=== PATIENT | female | born 1980 | race African-American/Black ===

== ENCOUNTER 2018-12-05 12:01 | Observation (INO) ==
[2018-12-05] MEDS ORDERED: SODIUM POLYSTYRENE SULFATE 15 GM/60 ML BOTTLE PO STA (17:08)
[2018-12-05] MEDS ORDERED: ZALEPLON 5 MG CAPSULE PO PRN (17:13)
[2018-12-05] MEDS ORDERED: diphenhydrAMINE CAP 25 MG CAPSULE PO PRN (17:13)
[2018-12-05] MEDS ORDERED: MORPHINE 4 MG/1 ML VIAL IV PRN (17:13)
[2018-12-05] MEDS ORDERED: ACETAMINOPHEN 325 MG TABLET PO PRN (17:13)
[2018-12-05] MEDS ORDERED: ONDANSETRON 4 MG/2 ML VIAL IV PRN (17:13)
[2018-12-05 17:26] LABS: Risk Ratio 3.74; VLDL CHOLESTEROL 18.8 MG/DL
[2018-12-05] MEDS: PANTOPRAZOLE 40 MG VIAL IV SCH (20:51)
[2018-12-06 05:17] LABS: Basophils % 0.5 % (0.0-0.8); Eosinophils # 0.4 10*3/uL (0.0-0.87); Eosinophils % 5.6 % (0.00-10.9); Hematocrit 25.6 VOL% (35.7-47.0); Hemoglobin 7.2 GM/DL (12.0-16.0); Immature Granulocytes % 0.2 %; Immature Granulocytes Absolute 0.01 #; Lymphocytes # 1.5 10*3/uL (1.4-4.0); Lymphocytes % 22.6 % (21.3-54.2); Mean Corpuscular HGB Conc 28.1 GM/DL (32-36); Mean Corpuscular Volume 82.6 FL (87-102); Mean Platelet Volume 11.2 FL (9.6-12.0); Monocytes % 4.1 % (1.7-12.7); Platelet Count 242 T/CUMM (130-400); Red Cell Distribution Width 17.1 % (9.3-17.3); White Blood Count 6.6 T/CUMM (4-12)
[2018-12-06 05:47] LABS: Anisocytosis 1+; Hypochromasia 1+; Platelet Estimate Adequate
[2018-12-06 05:56] LABS: Albumin 3.1 G/DL (3.4-5.0); Bilirubin,Total 0.6 MG/DL (0.2-1.0); Calcium 6.3 MG/DL (8.5-10.1); Total Protein 7.8 G/DL (6.4-8.3)
[2018-12-06 05:59] LABS: % Iron Saturation 7.4 % (18-50); Ferritin 13.8 ng/ml (8-252)
[2018-12-06] MEDS ORDERED: CALCIUM ACETATE 667 MG CAPSULE PO SCH (09:00)
[2018-12-06] MEDS ORDERED: PATIROMER CALCIUM SORBITEX 8.4 GM PO SCH (09:00)
[2018-12-06] MEDS ORDERED: amLODIPine 5 MG TABLET PO SCH (09:00)
[2018-12-06] MEDS ORDERED: SODIUM POLYSTYRENE SULFATE 15 GM/60 ML BOTTLE PO SCH (09:00)
[2018-12-06] MEDS: PANTOPRAZOLE 40 MG VIAL IV SCH (10:18)
[2018-12-06 11:58] VITALS: BP 124/84
[2018-12-06] MEDS ORDERED: PANTOPRAZOLE 40 MG TABLET PO SCH (21:00)
[2018-12-07 12:46] LABS: Folate 8.1 NG/ML (5.4-24.0)
== END 2018-12-06 14:43 | disposition home or self-care (01) ==
LOC: N.5E 15:02 → INTOOBSV 15:02 → SUATTDRO 15:02
PROVIDERS: ADMIT Internal Medicine; ATTEND Hospitalist

== ENCOUNTER 2019-10-16 09:25 | Inpatient (IN) ==
[2019-10-16 10:04] LABS: Basophils % 0.6 % (0.0-0.8); Eosinophils # 0.3 10*3/uL (0.0-0.87); Hematocrit 34.1 VOL% (35.7-47.0); Hemoglobin 10.4 GM/DL (12.0-16.0); Immature Granulocytes % 2.3 %; Immature Granulocytes Absolute 0.12 #; Lymphocytes # 0.9 10*3/uL (1.4-4.0); Lymphocytes % 16.8 % (21.3-54.2); Mean Corpuscular HGB Conc 30.5 GM/DL (32-36); Mean Corpuscular Volume 95.5 FL (87-102); Mean Platelet Volume 11.7 FL (9.6-12.0); Monocytes % 5.8 % (1.7-12.7); Neutrophils % 69.5 % (38.7-73.9); Platelet Count 317 T/CUMM (130-400); Red Blood Count 3.57 MC/CUMM (3.8-5.5); Red Cell Distribution Width 16.1 % (9.3-17.3); White Blood Count 5.2 T/CUMM (4-12)
[2019-10-16 10:22] LABS: Albumin 2.7 G/DL (3.4-5.0); Bilirubin,Total 0.4 MG/DL (0.2-1.0); Calcium 7.2 MG/DL (8.5-10.1); Osmolality,Calculated 307.4 MOS/KG (273-304); Total Protein 8.7 G/DL (6.4-8.3)
[2019-10-16 10:23] LABS: Eosinophils 8 % (0-10); Lymphocytes 16 % (20-55); Platelet Estimate Adequate; Segmented Neutrophils 73 % (50-85); Total Cells Counted 100
[2019-10-16 10:24] LABS: Hypochromasia 1+
[2019-10-16] MEDS ORDERED: ONDANSETRON 4 MG/2 ML VIAL IV PRN (14:27)
[2019-10-16] MEDS ORDERED: GLUCAGON 1 MG VIAL IM PRN (14:27)
[2019-10-16] MEDS ORDERED: DEXTROSE 50% 25 GM/50 ML VIAL IV PRN (14:27)
[2019-10-16 16:02] LABS: ABG Base Excess -5.2 MMOL/L (-2.5-2.5); ABG HCO3 20.1 MMOL/L (20-26); ABG Oxygen Saturation 94.7 % (95-100); ABG PCO2 32.1 MM HG (35-48); ABG PH 7.383 (7.35-7.45); ABG PO2 83.4 MM HG (80-95); ABG TCO2 17.6 MMOL/L (23-27)
[2019-10-17 06:26] LABS: Basophils % 0.4 % (0.0-0.8); Eosinophils # 0.3 10*3/uL (0.0-0.87); Eosinophils % 5.9 % (0.00-10.9); Hemoglobin 9.5 GM/DL (12.0-16.0); Immature Granulocytes Absolute 0.21 #; Lymphocytes # 0.9 10*3/uL (1.4-4.0); Mean Corpuscular HGB Conc 29.7 GM/DL (32-36); Mean Corpuscular Volume 97.3 FL (87-102); Mean Platelet Volume 11.3 FL (9.6-12.0); Monocytes % 6.8 % (1.7-12.7); NRBC # 0.02 10*3/uL; Neutrophils % 65.9 % (38.7-73.9); Platelet Count 332 T/CUMM (130-400); Red Blood Count 3.29 MC/CUMM (3.8-5.5); Red Cell Distribution Width 15.9 % (9.3-17.3); White Blood Count 5.3 T/CUMM (4-12)
[2019-10-17 06:44] LABS: Albumin 2.5 G/DL (3.4-5.0); Calcium 7.8 MG/DL (8.5-10.1); Osmolality,Calculated 293.2 MOS/KG (273-304); Total Protein 8.9 G/DL (6.4-8.3)
[2019-10-17 06:54] LABS: Band Neutrophils 1 % (0-10); Eosinophils 4 % (0-10); Hypochromasia 1+; Lymphocytes 15 % (20-55); Platelet Estimate Adequate; Segmented Neutrophils 73 % (50-85); Total Cells Counted 100
[2019-10-17] MEDS ORDERED: cefTRIAXone 1,000 MG in SODIUM CHLORIDE 0.9% 100 ML IV SCH (08:30)
[2019-10-17] MEDS ORDERED: guaiFENesin/DM ER 600-30 MG TABLET PO PRN (10:36)
[2019-10-17] MEDS: AZITHROMYCIN 250 MG TABLET PO SCH (15:56)
[2019-10-17] MEDS: HYDROXYCHLOROQUINE 200 MG TABLET PO SCH (15:56)
[2019-10-18 05:45] LABS: Basophils % 0.6 % (0.0-0.8); Eosinophils # 0.3 10*3/uL (0.0-0.87); Eosinophils % 4.9 % (0.00-10.9); Hematocrit 30.4 VOL% (35.7-47.0); Hemoglobin 9.1 GM/DL (12.0-16.0); Immature Granulocytes % 3.2 %; Immature Granulocytes Absolute 0.22 #; Mean Corpuscular HGB Conc 29.9 GM/DL (32-36); Mean Corpuscular Volume 95.9 FL (87-102); Mean Platelet Volume 11.2 FL (9.6-12.0); Monocytes % 7.8 % (1.7-12.7); Neutrophils % 68.5 % (38.7-73.9); Platelet Count 332 T/CUMM (130-400); Red Blood Count 3.17 MC/CUMM (3.8-5.5); Red Cell Distribution Width 15.8 % (9.3-17.3); White Blood Count 6.8 T/CUMM (4-12)
[2019-10-18 06:11] LABS: Anisocytosis 1+; Band Neutrophils 4 % (0-10); Eosinophils 5 % (0-10); Lymphocytes 16 % (20-55); Segmented Neutrophils 67 % (50-85); Total Cells Counted 100
[2019-10-18 06:12] LABS: Platelet Estimate Normal; Polychromasia Few
[2019-10-18 06:14] LABS: Calcium 7.3 MG/DL (8.5-10.1); Osmolality,Calculated 294.5 MOS/KG (273-304)
[2019-10-18] MEDS: AZITHROMYCIN 250 MG TABLET PO SCH (08:36)
[2019-10-18] MEDS: HYDROXYCHLOROQUINE 200 MG TABLET PO SCH (08:36)
[2019-10-18 12:08] VITALS: BP 96/51
[2019-10-18] MEDS ORDERED: HYDROXYCHLOROQUINE 200 MG TABLET PO SCH (21:00)
[2019-10-19] MEDS ORDERED: ZINC SULFATE 220 MG CAPSULE PO SCH (15:00)
== END 2019-10-18 16:10 | disposition home or self-care (01) | DRG 177 ==
LOC: EDUNIT# → N.ED 09:25 → N.EDINP 14:27 → N.2W 15:38
PROVIDERS: ADMIT Family Medicine; ATTEND Family Medicine